=== PATIENT | female | born 1995 | race Caucasian/White ===

== ENCOUNTER 2020-05-11 19:02 | Emergency (ER) | payer OTHER ==
[2020-05-11] MEDS ORDERED: Morphine 4 MG/ML VIAL ONE (19:10)
[2020-05-11] MEDS ORDERED: Ondansetron PF 4 MG/2 ML Vial ONE (19:11)
[2020-05-11 19:19] LABS: #Basophils 0.1 thou/uL (0.0-0.2); #Eosinphils 0.3 thou/uL (0.0-0.7); #Lymphocytes 2.2 thou/uL (1.20-3.40); #Monocytes 0.5 thou/uL (0.11-0.59); #Neutrophils 6.3 thou/uL (1.40-6.50); %Basophils 0.5 % (0.0-1.0); %Eosinophils 3.1 % (0.0-10.0); %Lymphocytes 23.4 % (21.0-51.0); %Monocytes 5.3 % (0.0-10.0); %Neutrophils 67.7 % (42.0-75.0); Hemoglobin 12.3 g/dL (12.0-16.0); Manual Diff?? NO; Mean Corpuscular HGB CONC 29.8 g/dL (32.0-36.0); Mean Corpuscular Hemoglobin 29.9 pg (27.0-31.0); Mean Platelet Volume 7.7 fL (7.4-10.4); Platelet Count 203 thou/uL (130-400); RBC Distribution Width 12.7 % (11.5-14.5); Red Blood Cell (RBC) Count 4.12 mill/uL (4.20-5.40); White Blood Cell (WBC) Count 9.3 thou/uL (4.8-10.8)
[2020-05-11 19:20] LABS: MDiff Complete? YES
[2020-05-11 19:22] LABS: INR-International Normal Ratio 0.9; Prothrombin Time 12.3 sec (12.0-14.7)
[2020-05-11 19:31] LABS: ALT (SGPT) 22 U/L (8-55); AST (SGOT) 19 U/L (5-34); Albumin 4.3 g/dL (3.5-5.0); Alkaline Phosphatase 44 U/L (40-110); Anion Gap 12 mmol/L (10-20); BHCG - Serum Negative (NEGATIVE); BUN (Urea Nitrogen) 13 mg/dL (7.0-18.7); Bilirubin, Total 0.2 mg/dL (0.2-1.2); Calc. Creatinine Clearance 0 mL/min (70-130); Calcium 9.1 mg/dL (7.8-10.44); Carbon Dioxide 28 mmol/L (22-29); Chloride 105 mmol/L (98-107); Estimated GFR-MDRD 71; Globulin 2.5 g/dL (2.4-3.5); Glucose 102 mg/dL (70-105); Potassium 3.8 mmol/L (3.5-5.1); Pregs Control Background? CLEAR/WHITE (CLR/WHITE); Pregs Control Bar Appear? YES (CONTROL BAR); Protein, Total 6.8 g/dL (6.0-8.3); Sodium 141 mmol/L (136-145)
--- NOTE | 2020-05-11 20:01 | RAD ---
PELVIS ONE VIEW: Date: 05-11-2020 FINDINGS: No acute fracture was seen. Both hips appear intact and the hip joints are normal in width. The width of the symphysis is acceptable and there is no off set. The SI joints are symmetrical. Arcuate lines of the sacrum appear intact. The pubic rings appear intact. IMPRESSION: No acute findings. POS: HOME
--- NOTE | 2020-05-11 20:16 | RAD ---
LEFT FEMUR: Date: 05-11-2020 FINDINGS: The left hip and femoral shaft all appeared intact. A fat fluid level is seen in the superpatellar bu rsa. Lines over the lateral femoral condyle are probably referable to the tibial plateau fracture rat her than a fracture of the condyle itself. Follow up images as the tibia is fixed may be helpful. IMPRESSION: No gross fracture of the femur was seen. See comments above and other studies regarding the proximal tibia. POS: HOME
[2020-05-11] MEDS ORDERED: Fentanyl 100 MCG/2 ML VIAL ONE (20:20)
--- NOTE | 2020-05-11 20:20 | RAD ---
LEFT FOOT THREE VIEWS: Date: 05-11-2020 FINDINGS: Fractures of multiple toes are apparent. There is a fracture at the base of the proximal phalanx of t he great toe laterally that extends into the first MTP joint with minimal displacement. There is a fr acture at the base of the proximal phalanx of the second toe with some angulation at the fracture sit e. A fracture is present at the base of the proximal phalanx of the third toe with little displacemen t, but it does extend into the third MTP joint. There is a fracture at the base of the proximal phala nx of the fourth toe, also extending into the fourth MTP joint. There is little displacement. Additio pipe, there is a fracture of the middle phalanx of the third toe at the PIP joint. The metatarsals and remainder of the foot appeared intact. I would note that the great toe fracture m ay be somewhat more complex, as there appears to be multiple components to this fracture. IMPRESSION: 1. Acute fractures of the proximal phalanges of toes 1-4 and the middle phalanx of toe 3. 2. The fracture at the base of the proximal phalanx of the great toe shows some displacement and is p robably more complex than the others. POS: HOME
--- NOTE | 2020-05-11 20:23 | RAD ---
LEFT LEG: Date: 05-11-2020 FINDINGS: Multiple views are submitted. There is a grossly comminuted fracture of the proximal tibia that invol ves the tibial plateau and portions of the proximal shaft. The medial tibial plateau and a part of th e lateral are significantly depressed and displaced as an entire fragment, in addition to all other f ragments. A fat fluid level is seen in the suprapatellar bursa. As best as I can tell, the distal fem ur is intact, however, it is not seen sufficiently well. There are some lines over the lateral femora l condyle that are most likely exterior to it, but other views would be needed to clear this area of fracture as well. IMPRESSION: 1. Severely comminuted and displaced fracture of the proximal tibia with marked disruption of the tib ial plateau. 2. See comments above regarding the distal femur. Further images would be helpful. POS: HOME
--- NOTE | 2020-05-11 20:27 | RAD ---
PORTABLE CHEST: Date: 05-11-2020 FINDINGS: The heart is normal in size. The mediastinum shows no widening or shift and the trachea is midline. T he lungs are fully inflated and clear. There is no sign of infiltrate, effusion or pneumothorax. No f ractures were appreciated. IMPRESSION: No acute thoracic findings. POS: HOME
== END 2020-05-11 20:55 | disposition short-term general hospital (02) ==
LOC: BURERS 19:02
DX: S82.142A Displaced bicondylar fracture of left tibia, initial encounter for closed fracture (principal); S92.512A Displaced fracture of proximal phalanx of left lesser toe(s), initial encounter for closed fracture; S92.412A Displaced fracture of proximal phalanx of left great toe, initial encounter for closed fracture; S92.522A Displaced fracture of middle phalanx of left lesser toe(s), initial encounter for closed fracture; F39 Unspecified mood [affective] disorder; Z79.899 Other long term (current) drug therapy; W17.89XA Other fall from one level to another, initial encounter; Y93.39 Activity, other involving climbing, rappelling and jumping off
CPT/HCPCS: 29505; 36415; 71045; 72170; 80053; 84703; 85025; 85610; 96361; 96374; 96375; J2270; J2405; J3010